=== PATIENT | female | born 1980 | race Caucasian/White ===

== ENCOUNTER 2025-05-22 11:32 | Emergency (ER) | payer OTHER ==
[2025-05-22 13:51] LABS: Sqamous Epithelial <5 /HPF (None Seen); Urine Culture Reflex Order NOT NEEDED; Urine Microscopic Reflex YN ORDER UMIC; Urine WBC Clump Rare /HPF (None Seen); Urine Yeast (Budding) Trace /HPF (None Seen)
[2025-05-22] MEDS ORDERED: KETOROLAC 30 MG/ML INJ ONE (14:50)
--- NOTE | 2025-05-22 14:57 | RAD REPORT ---
EXAMINATION: CT LUMBAR SPINE WITHOUT CONTRAST CLINICAL INDICATION: Radiculopathy and back pain. TECHNIQUE: Axial CT images were obtained through the lumbar spine in soft tissue and bone windows wi thout intravenous contrast. Coronal and Sagittal reformatted images were created from the data set. One or more of the following dose reduction techniques were used: Automated exposure control, adjustm ent of the mA and/ or kV according to patient size, and/or iterative reconstruction. Unless otherwise specified, incidental findings do not require dedicated imaging follow-up. COMPARISON: No prior exam. FINDINGS: For purposes of this dictation, it is assumed that there are 5 non rib-bearing lumbar type vertebrae, and the most caudal fully segmented lumbar vertebra is labeled L5. No fracture seen No dislocation. Asymmetric disc bulge L2-3 more prominent on the left. Additional disc bulges L3-4 and L4-5 Disc bulge L5-S1 abuts the nerve roots but does not displace them posteriorly. No high-grade central/foraminal stenosis seen. IMPRESSION: No fracture seen. No high-grade central/foraminal stenosis. If the patient continues to have symptoms to suggest spinal canal pathology then MRI would be recomm ended
[2025-05-22 15:22] LABS: Absolute Lymphocytes (CBC) 1.7 K/uL (0.7-4.9); Hematocrit 36.8 % (36.0-45.0); Hemoglobin 12.4 g/dL (12.0-15.0); MCH 31.1 pg (27.0-35.0); MCHC 33.8 g/dL (32.0-36.0); MCV 92.0 fL (80-100); MPV 6.5 fL (7.6-11.3); Nucleated RBC Absolute Count 0.0 (0-0); Nucleated Red Blood Cells % 0.0 % (0-0); RBC Red Blood Cell Count 4.00 M/uL (3.86-4.86); White Blood Count 8.40 thou/uL (4.3-10.9)
[2025-05-22 15:44] LABS: ALT/SGPT 18 U/L (13-56); Albumin 4.0 g/dL (3.4-5.0); Albumin/Globulin Ratio 1.1 (1.1-1.8); Alkaline Phosphatase 26 U/L (45-117); Anion Gap 9.0 mEq/L (5.0-15.0); BUN Blood Urea Nitrogen 7 mg/dL (7-18); Globulin 3.7 g/dL (2.3-3.5); Glucose Level 103 mg/dL (74-106); Magnesium 2.0 mg/dL (1.6-2.4); NT PRO-BNP 98 pg/mL (<125); Potassium 4.0 mEq/L (3.5-5.1)
[2025-05-22 15:45] LABS: AST/SGOT < 10 U/L (15-37); Bilirubin Indirect, Calculated 0.3 mg/dL (0.2-0.8); Troponin High Sensitivity < 3.0 pg/mL (<58.9)
[2025-05-22 16:12] LABS: PT Prothrombin Time 13.4 SECONDS (10-13.0); Protime INR 1.19
--- NOTE | 2025-05-22 16:20 | EDPHYS ---
Physician Documentation [facility] Name: Amada Devi Age: 45 yrs Sex: Female : 1980 Arrival Date: 05/22/2025 Time: 11:32 Bed 12 Private MD: ED Physician Alexys Beltran HPI: 05/22 17:13 This 45 yrs old Female presents to ER via Ambulatory with complaints of Back Pain - sb4 LOWER, Hip Pain, Leg Pain. 17:13 Patient reports left lower back pain for about 3 weeks now and now she states that she sb4 has a numbness/tingling on her left anterior thigh. She is not sure if she pinched a nerve. She states that she did have an injury initially 3 weeks ago. States that the pain does not radiate down the posterior aspect of her leg. Denies any prior back issues. States she has been taking Tylenol ibuprofen without significant relief in symptoms. Denies any bowel or bladder incontinence. Denies any saddle paresthesia. States pain is better with sitting and leg flexed, worse with standing and walking. 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 - Infectious Disease History:: Denies. - Social history:: Smoking status: Patient denies any tobacco usage or history of. ROS: 17:13 Constitutional: Negative for fever, chills, and weight loss, sb4 17:13 Back: Positive for per HPI, 17:13 All other systems are negative, Exam: 17:13 Constitutional: This is a well developed, well nourished patient who is awake, alert, sb4 and in no acute distress. Head/Face: Normocephalic, atraumatic. Eyes: Extra-ocular motions intact. Periorbital areas with no swelling, redness, or edema. ENT: Mucous membranes moist. Respiratory: No increased work of breathing, no retractions or nasal flaring. Back: No spinal tenderness. No costovertebral tenderness. Full range of motion. Skin: Warm, dry with normal turgor. Normal color with no rashes, no lesions, and no evidence of cellulitis. MS/ Extremity: Pulses equal, no cyanosis. Neurovascular intact. Full, normal range of motion. Neuro: Awake and alert, GCS 15, oriented to person, place, time, and situation. Motor strength 5/5 in all extremities. Sensory grossly intact. 17:15 Neuro: Exam negative for acute changes, focal neuro deficits, motor deficits, sensory sb4 deficits, cerebellar deficits, altered mental status, Vital Signs: 12:21 BP 193 / 128; Pulse 101; Resp 16; Temp 97; Pulse Ox 100% ; Weight 58.97 kg; Height 5 jl7 ft. 0 in. ; Pain 7/10; 16:04 BP 166 / 115; Pulse 74; Resp 16; Pulse Ox 98% on R/A; jb4 12:21 Body Mass Index 25.39 (58.97 kg, 152.4 cm) jl7 12:21 Pain Scale: Adult jl7 MDM: 11:38 Medical Screening Exam initiated sb4 17:14 Differential diagnosis: chronic back pain, Fracture Joint Injury Neoplasm ruptured sb4 disc, spinal injury, UTI. Data reviewed: vital signs, nurses notes, lab test result(s), EKG, radiologic studies, and as a result, I will discharge patient. Consideration of Admission/Observation Escalation of care including admission/observation considered. Counseling: I had a detailed discussion with the patient and/or guardian regarding the historical points, exam findings, and any diagnostic results supporting the discharge/admit diagnosis, the presence of at least one elevated blood pressure reading (>120/80) during this emergency department visit, lab results, radiology results, the need for outpatient follow up, for definitive care, to return to the emergency department if symptoms worsen or persist or if there are any questions or concerns that arise at home. ED course: Patient blood pressure noted to be very elevated while she was here. She denies any history of hypertension. Because she was experiencing a headache, I went ahead with a cardiac workup that was unremarkable. Blood pressure improved with clonidine and stated her headache. Advised to follow-up with PCP. She understands and agrees with plan. 17:15 Special discussion: I discussed with the patient/guardian in detail that at this point sb4 there is no indication for admission to the hospital. It is understood, however, that if the symptoms persist or worsen the patient needs to return immediately for re-evaluation. Further emergent ED testing is not indicated at this point in time. I discussed with the patient/guardian in detail the need to arrange with the PCP or specialist further outpatient testing, MRI. 05/22 12:29 Order name: Test, Urine; Complete Time: 13:57 sb4 05/22 12:29 Order name: UA Rfx Enrique Cult if indicated; Complete Time: 13:57 sb4 05/22 14:58 Order name: Basic Metabolic Panel; Complete Time: 15:45 sb4 05/22 14:58 Order name: CBC with Diff; Complete Time: 15:25 sb4 05/22 14:58 Order name: LFT's; Complete Time: 15:45 sb4 05/22 14:58 Order name: Magnesium; Complete Time: 15:45 sb4 05/22 14:58 Order name: NT PRO-BNP; Complete Time: 15:45 sb4 05/22 14:58 Order name: PT-INR; Complete Time: 16:13 sb4 05/22 14:58 Order name: Troponin HS; Complete Time: 15:45 sb4 05/22 12:29 Order name: CT Lumbar Spine Wo Con; Complete Time: 14:57 sb4 05/22 14:58 Order name: EKG; Complete Time: 14:59 sb4 05/22 14:58 Order name: Cardiac monitoring; Complete Time: 15:36 sb4 05/22 14:58 Order name: EKG - Nurse/Tech; Complete Time: 15:36 sb4 05/22 14:58 Order name: IV Saline Lock; Complete Time: 15:36 sb4 05/22 14:58 Order name: Labs collected and sent; Complete Time: 15:36 sb4 05/22 14:58 Order name: O2 Per Protocol; Complete Time: 15:36 sb4 05/22 14:58 Order name: O2 Sat Monitoring; Complete Time: 15:36 sb4 05/22 15:31 Order name: Labs - recollect needed: recollect blue top; Complete Time: 15:59 bd 05/22 16:03 Order name: Vital Signs; Complete Time: 16:06 sb4 EC:30 Rate is 86 beats/min. Rhythm is regular, Normal Sinus Rhythm. PA interval is normal at sb4 138 msec. QRS interval is normal at 77 msec. QT interval is normal at 375 msec. No Q waves. T waves are Normal. No ST changes noted. Clinical impression: Normal ECG. Interpreted by me. Reviewed by me. Administered Medications: 14:50 Drug: Ketorolac IM 30 mg IM once Route: IM; Site: left deltoid; jl7 14:51 Drug: Methocarbamol PO 750 mg PO once Route: PO; jl7 14:52 Drug: Dexamethasone IM 10 mg IM once Route: IM; Site: right deltoid; jl7 15:50 Drug: cloNIDine PO 0.1 mg PO once Route: PO; jb4 Disposition: 18:26 I was immediately available on-site in the Emergency Department for consultation in the ms3 care of the patient. Disposition Summary: 05/22/25 16:19 Discharge Ordered Notes: Location: Home sb4 Problem: new sb4 Symptoms: have improved sb4 Condition: Stable sb4 Diagnosis - Intervertebral disc disorders with radiculopathy, lumbar region sb4 - Elevated blood-pressure reading, without diagnosis of hypertension sb4 Followup: sb4 - With: Private Physician - When: As needed - Reason: Recheck today's complaints, Re-evaluation by your physician Discharge Instructions: - Discharge Summary Sheet sb4 - Herniated Disk sb4 - Form - Blood Pressure Record Sheet sb4 Forms: - Patient Portal Instructions sb4 - Leadership Thank You Letter sb4 Prescriptions: - Prednisone 20 mg Oral Tablet - take 1 tablet ORAL route once daily for 5 days; 5 tablet; Refills: 0, Product sb4 Selection Permitted - Cyclobenzaprine 10 mg Oral Tablet - take 1 tablet ORAL route every 8 hours As needed; 30 tablet; Refills: 0, sb4 Product Selection Permitted - Diclofenac Sodium 75 mg Oral Tablet Sustained Release - take 1 tablet ORAL route 2 times per day; 30 tablet; Refills: 0, Product sb4 Selection Permitted Signatures: Dispatcher [employer] EDMO Lilliana Vann James, RN RN jb4 Semaj Mccracken RN RN jl7 Alexys Beltran DO DO ms3 Ruba Ramos PA-C PA-C sb4 Corrections: (The following items were deleted from the chart) 12:21 12:21 PSHx: None; jl7 jl7 12:29 12:29 Spine Lumbar Wo Con+CT.RAD.BRZ ordered. EDMO EDMS 12:29 12:29 Test, Urine+UC.LAB.BRZ ordered. EDMS EDMS 12: UA Rfx Enrique Cult if indicated+U.LAB.BRZ ordered. EDMS EDMS
--- NOTE | 2025-05-22 16:20 | ER ---
Nurse's Notes [facility] Name: Amada Devi Age: 45 yrs Sex: Female : 1980 Arrival Date: 05/22/2025 Time: 11:32 Bed 12 Private MD: Diagnosis: Intervertebral disc disorders with radiculopathy, lumbar region;Elevated blood-pressure reading, without diagnosis of hypertension Presentation: 05/22 12:21 Chief complaint: Patient states: Low back pain x 3 weeks, radiates to left leg x 4 jl7 days. Coronavirus screen: At this time, the client does not indicate any symptoms associated with coronavirus-19. Ebola Screen: No symptoms or risks identified at this time. Initial Sepsis Screen: Does the patient meet any 2 criteria? No. Patient's initial sepsis screen is negative. Does the patient have a suspected source of infection? No. Patient's initial sepsis screen is negative. Risk Assessment: Do you want to hurt yourself or someone else? Patient reports no desire to harm self or others. Onset of symptoms was May 18, 2025. 12:21 Method Of Arrival: Ambulatory jl7 12:21 Acuity: MARY 2 jl7 Triage Assessment: 12:21 General: Appears in no apparent distress. uncomfortable, Behavior is calm, cooperative, jl7 appropriate for age. Pain: Complains of pain in low back area Pain radiates to left leg Pain currently is 7 out of 10 on a pain scale. Musculoskeletal: Range of motion: intact in all extremities. 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 - Infectious Disease History:: Denies. - Social history:: Smoking status: Patient denies any tobacco usage or history of. Screenin:38 [facility] ED Fall Risk Assessment (Adult) History of falling in the last 3 months, jb4 including since admission No falls in past 3 months (0 pts) Confusion or Disorientation No (0 pts) Intoxicated or Sedated No (0 pts) Impaired Gait No (0 pts) Mobility Assist Device Used No (0 pt) Altered Elimination No (0 pt) Score/Fall Risk Level 0 - 2 = Low Risk Oriented to surroundings, Maintained a safe environment. Abuse screen: Denies threats or abuse. Nutritional screening: No deficits noted. Tuberculosis screening: No symptoms or risk factors identified. Assessment: 15:00 General: Appears in no apparent distress. uncomfortable, Behavior is calm, cooperative, jb4 appropriate for age. Pain: Complains of pain in back Pain radiates to left leg Pain currently is 7 out of 10 on a pain scale. Neuro: Level of Consciousness is awake, alert, obeys commands, Oriented to person, place, time, situation. Cardiovascular: Patient's skin is warm and dry. Respiratory: Airway is patent Respiratory effort is even, unlabored, Respiratory pattern is regular, symmetrical. Derm: Skin is intact, Skin is pink, warm \T\ dry. Musculoskeletal: Circulation, motion, and sensation intact. Range of motion: intact in all extremities. 16:04 Reassessment: Patient appears in no apparent distress at this time. Patient and/or jb4 family updated on plan of care and expected duration. Pain level reassessed. Patient is alert, oriented x 3, equal unlabored respirations, skin warm/dry/pink. Vital Signs: 12:21 BP 193 / 128; Pulse 101; Resp 16; Temp 97; Pulse Ox 100% ; Weight 58.97 kg; Height 5 jl7 ft. 0 in. ; Pain 7/10; 16:04 BP 166 / 115; Pulse 74; Resp 16; Pulse Ox 98% on R/A; jb4 12:21 Body Mass Index 25.39 (58.97 kg, 152.4 cm) jl7 12:21 Pain Scale: Adult jl7 ED Course: 11:35 Patient arrived in ED. cj3 11:37 Ruba Ramos PA-C is PHCP. sb4 11:37 Alexys Beltran DO is Attending Physician. sb4 12:21 Arm band placed on right wrist. jl7 12:25 Triage completed. jl7 13:37 Urine collected: clean catch specimen, sent to lab. ts3 14:02 CT Lumbar Spine Wo Con In Process Unspecified. EDMS 15:16 Initial lab(s) drawn, by me, sent to lab. Inserted saline lock: 22 gauge in left tm3 antecubital area, using aseptic technique. 16:02 Palomo Hampton, RN is Primary Nurse. jb4 16:38 Patient has correct armband on for positive identification. Bed in low position. Call jb4 light in reach. Side rails up X 1. Provided Education on: plan of care. 16:38 No provider procedures requiring assistance completed. IV discontinued, intact, jb4 bleeding controlled, No redness/swelling at site. Pressure dressing applied. Administered Medications: 14:50 Drug: Ketorolac IM 30 mg IM once Route: IM; Site: left deltoid; jl7 14:51 Drug: Methocarbamol PO 750 mg PO once Route: PO; jl7 14:52 Drug: Dexamethasone IM 10 mg IM once Route: IM; Site: right deltoid; jl7 15:50 Drug: cloNIDine PO 0.1 mg PO once Route: PO; jb4 Medication: 16:38 VIS not applicable for this client. jb4 Outcome: 16:19 Discharge ordered by MD. sb4 16:38 Discharged to home ambulatory, with family, jb4 16:38 Condition: stable 16:38 Discharge instructions given to patient, Instructed on discharge instructions, follow up and referral plans. no drinking with medication, no driving heavy equipment, medication usage, Demonstrated understanding of instructions, follow-up care, medications, Prescriptions given X 3, 16:39 Patient left the ED. jb4 Signatures: Dispatcher [employer] EDMS Tramaine Vicente tm3 Palomo Hampton RN RN jb4 Semaj Mccracken RN RN jl7 Ruba Ramos PA-C PADell sb4 Anastasiia Mo cj3 Megan Rivas ts3 Corrections: (The following items were deleted from the chart) 12:21 12:21 PSHx: None; mariano quintana 12:27 12:21 LMP 04/2025, unknown mariano quintana 16:04 15:00 Pain: Complains of pain in back Pain does not radiate. Pain currently is 7 out of jb4 10 on a pain scale. jb4
[2025-05-22 22:43] VITALS: TEMP 97
[2025-05-22 22:45] VITALS: BP 166/115; O2SAT 98
== END 2025-05-22 16:39 | disposition home or self-care (01) ==
LOC: ER 11:32
DX: M51.16 Intervertebral disc disorders with radiculopathy, lumbar region (principal); R03.0 Elevated blood-pressure reading, without diagnosis of hypertension
CPT/HCPCS: 93005; 85025; 81001; 80048; 36415; 83735; 81025; 85610; 80076; 84484; 83880; 72131; 96372; 99284; J1885; J1100